=== PATIENT | female | born 1940 | race Caucasian/White ===

== ENCOUNTER 2016-12-07 13:22 | Emergency (ER) | payer OTHER ==
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
[2016-12-07 14:59] VITALS: BP 140/84; PULSE 80; RESP 14; TEMP 98.4; O2SAT 94
== END 2016-12-07 14:58 | disposition home or self-care (01) ==
DX: S40.022A Contusion of left upper arm, initial encounter (principal); W23.0XXA Caught, crushed, jammed, or pinched between moving objects, initial encounter; Y99.8 Other external cause status; Y93.89 Activity, other specified